=== PATIENT | male | born 1990 | race Caucasian/White ===

== ENCOUNTER 2017-04-29 22:56 | Emergency (ER) | payer OTHER ==
[~2017-04-29] VITALS: Ht 172.7 cm; Wt 107.3 kg
[2017-04-29 23:45] LABS: HEMATOCRIT 42.2 % (38.0-50.0); MCH 28.8 PG (29.0-34.0); MCHC 32.9 G/DL (30.0-36.0); MCV 87.6 FL (86-99); MEAN PLAT.VOLUME 8.9 uM^3 (9.0-12.4); PLATELET COUNT 471 K/uL (156-360); RBC DIS.WIDTH-CV 13.2 % (11.8-14.6); RBC DIS.WIDTH-SD 42.7 % (39-53); RED BLOOD COUNT 4.82 M/uL (4.00-5.50); WHITE BLOOD COUNT 8.6 K/uL (4.1-10.2)
[2017-04-30 00:01] LABS: CHLORIDE 103 mEq/L (99-109); POTASSIUM 3.9 mEq/L (3.7-5.4); SODIUM 138 mEq/L (136-147)
[2017-04-30 00:03] LABS: GLUCOSE 76 mg/dL (70-99)
[2017-04-30 00:05] LABS: ANION GAP 7 MEQ/L (2-14)
[2017-04-30 00:07] LABS: GFR ESTIMATE (CALCULATED) > 59 mL/min/ (58.99-99999)
[2017-04-30 00:08] LABS: UREA NITROGEN (BUN) 9 mg/dL (9-23)
[2017-04-30 00:10] LABS: CREATINE KINASE 962 IU/L (1-294)
[2017-04-30 00:13] LABS: D-DIMER ELISA < 150.00 ng/mLDDU (<230)
[2017-04-30 00:15] LABS: TROP-I INTERPRETATION NEGATIVE; TROPONIN-I < 0.01 ng/mL (0.0-0.30)
[2017-04-30 01:10] LABS: TROP-I INTERPRETATION NEGATIVE; TROPONIN-I < 0.01 ng/mL (0.0-0.30)
[2017-04-30 03:43] VITALS: BP 114/56
== END 2017-04-30 03:44 | disposition home or self-care (01) ==
LOC: EME 22:56
PROVIDERS: Nurse Practitioner Family
DX: R07.9 Chest pain, unspecified (principal); M62.82 Rhabdomyolysis; Z87.891 Personal history of nicotine dependence; Z88.1 Allergy status to other antibiotic agents
CPT/HCPCS: 71020; 80048; 82550; 82550 91; 84484; 85027; 85379; 93005; 99281; 99285; J7030